=== PATIENT | male | born 1975 | race Caucasian/White ===

== ENCOUNTER 2019-09-26 10:24 | Emergency (ER) | payer BC, OTHER ==
[2019-09-26] MEDS ORDERED: Acetaminophen/HYDROcodone 325-5 MG Tab PO ONE (10:44)
[2019-09-26] MEDS ORDERED: Ondansetron 4 MG Tab.DIS PO ONE (10:44)
--- NOTE | 2019-09-26 10:47 | EDM.PDOC ---
ED HPI GENERAL MEDICAL PROBLEM - General Chief Complaint: Upper Extremity Injury/Pain Stated Complaint: HURT RT SHOULDER Time Seen by Provider: 09/26/19 10:26 Source of Information: Reports: Patient History Limitations: Reports: No Limitations - History of Present Illness INITIAL COMMENTS - FREE TEXT/NARRATIVE: HISTORY AND PHYSICAL: History of present illness: Patient is a 44-year-old male who presents to the emergency room with complaints of right shoulder pain. He states he was walking down the stairs when he slipped and fell into the wall. He was trying to catch himself on the railing and felt sharp pain into the was trying to catch himself on the railing and felt sharp pain into the right shoulder. He denies actually falling to the ground or hitting his head. He denies any other extremity involvement. Does have a previous history of some rotator cuff injury 2. Denies any numbness or tingling of the affected extremity. Limited range of motion due to pain. Review of systems: As per history of present illness and below otherwise all systems reviewed and negative. Past medical history: As per history of present illness and as reviewed below otherwise noncontributory. Surgical history: As per history of present illness and as reviewed below otherwise noncontributory. Social history: See social history for further information Family history: As per history of present illness and as reviewed below otherwise noncontributory. Physical exam: General: Well-developed and well-nourished 44-year-old male. Alert and oriented. Nontoxic appearing and in no acute distress. HEENT: Atraumatic, normocephalic, pupils equal and reactive bilaterally, negative for conjunctival pallor or scleral icterus, mucous membranes moist, TMs normal bilaterally, throat clear, neck supple, nontender, trachea midline. No drooling or trismus noted. No meningeal signs. No hot potato voice noted. Lungs: Clear to auscultation, breath sounds equal bilaterally, chest nontender. Heart: S1S2, regular rate and rhythm without overt murmur Abdomen: Soft, nondistended, nontender. Negative for masses or hepatosplenomegaly. Negative for costovertebral tenderness. Pelvis: Stable nontender. Skin: Intact, warm, dry. No lesions or rashes noted. Extremities: Limited ROM of right shoulder. Pain with palpation of the right shoulder girdle, no pain above or below that site. Strong radial pulse. He otherwise moves all other extremities per self without difficulty or deficits, negative for cords or calf pain. Neurovascular unremarkable. Neuro: Awake, alert, oriented. Cranial nerves II through XII unremarkable. Cerebellum unremarkable. Motor and sensory unremarkable throughout. Exam nonfocal. Notes: X-ray shows no acute findings. Patient is aware of the limitations of imaging through the ER; we discussed the likely need for further imagining like MRI. Encouraged him to follow up with orthopedic provider. Sling was applied with education. Supportive care measures were reviewed and discussed. Voices understanding and is agreeable to plan of care. Denies any further questions or concerns at this time. Diagnostics: Shoulder Therapeutics: Dudley, Zofran Prescription: Dudley (#20), Zofran Impression: Right shoulder injury Plan: 1. Rest, ice, elevate the affected extremity. Please wear the splint as directed. 2. Tylenol and/or Ibuprofen as needed for pain management. 3. Follow up with the Orthopedic provider as we discussed. Return to the ED as needed and as discussed. Definitive disposition and diagnosis as appropriate pending reevaluation and review of above. Right Upper Arm Pain Score (Numeric/FACES): 11 - Related Data Allergies Allergy/AdvReac Type Severity Reaction Status Date / Time No Known Allergies Allergy Verified 09/26/19 10:40 Home Meds: Home Meds Acetaminophen/HYDROcodone [Dudley 325-5 MG] 1 dose PO Q4H #20 tablet 09/26/19 [Rx ] Losartan [Cozaar] 100 mg PO DAILY 09/26/19 [History] Ondansetron [Zofran ODT] 4 mg PO Q6H PRN #8 tab.dis 09/26/19 [Rx] Past Medical History Cardiovascular History: Reports: Hypertension - Infectious Disease History Infectious Disease History: Reports: Chicken Pox Social & Family History - Family History Family Medical History: Noncontributory - Tobacco Use Smoking Status *Q: Never Smoker - Recreational Drug Use Recreational Drug Use: No Review of Systems - Review of Systems Review Of Systems: Comprehensive ROS is negative, except as noted in HPI. ED EXAM, GENERAL - Physical Exam Exam: See Below (See dictation) Course - Vital Signs Last Recorded V/S: Last Vital Signs Temp 98.0 F 09/26/19 10:33 Pulse 93 09/26/19 10:33 Resp 18 09/26/19 10:33 BP 140/96 H 09/26/19 10:33 Pulse Ox 96 09/26/19 10:33 - Orders/Labs/Meds Orders: Active Orders 24 hr Category Date Time Status DME for Discharge [COMM] Stat Oth 09/26/19 12:06 Ordered Meds: Medications Discontinued Medications Generic Name Dose Route Start Last Admin Trade Name Freq PRN Reason Stop Dose Admin Hydrocodone Bitart/Acetaminophen 1 tab 09/26/19 10:44 09/26/19 11:06 Dudley 325-5 Mg PO 09/26/19 10:45 1 tab ONETIME ONE Administration Ondansetron HCl 4 mg 09/26/19 10:44 09/26/19 11:06 Zofran Odt PO 09/26/19 10:45 4 mg ONETIME ONE Administration Departure - Departure Time of Disposition: 12:11 Disposition: Home, Self-Care 01 Clinical Impression: Right shoulder injury Qualifiers: Encounter type: initial encounter Qualified Code(s): S49.91XA - Unspecified injury of right shoulder and upper arm, initial encounter - Discharge Information Prescriptions: Acetaminophen/HYDROcodone [Dudley 325-5 MG] 1 dose PO Q4H #20 tablet Ondansetron [Zofran ODT] 4 mg PO Q6H PRN #8 tab.dis PRN Reason: Nausea Instructions: Shoulder Sprain Referrals: Rogelio Jay MD [Primary Care Provider] - Forms: ED Department Discharge Additional Instructions: The following information is given to patients seen in the emergency department who are being discharged to home. This information is to outline your options for follow-up care. We provide all patients seen in our emergency department with a follow-up referral. The need for follow-up, as well as the timing and circumstances, are variable depending upon the specifics of your emergency department visit. If you don't have a primary care physician on staff, we will provide you with a referral. We always advise you to contact your personal physician following an emergency department visit to inform them of the circumstance of the visit and for follow-up with them and/or the need for any referrals to a consulting specialist. The emergency department will also refer you to a specialist when appropriate. This referral assures that you have the opportunity for follow-up care with a specialist. All of these measure are taken in an effort to provide you with optimal care, which includes your follow-up. Under all circumstances we always encourage you to contact your private physician who remains a resource for coordinating your care. When calling for follow-up care, please make the office aware that this follow-up is from your recent emergency room visit. If for any reason you are refused follow-up, please contact the [facility] Emergency Department at and asked to speak to the emergency department charge nurse. [facility] [address] [place] [address] [id number] [address] [address] 1. Rest, ice, elevate the affected extremity. Please wear the splint as directed. 2. Tylenol and/or Ibuprofen as needed for pain management. Dudley for moderate to severe pain, take as needed. 3. Follow up with the Orthopedic provider as we discussed. You will likely need further imagining like MRI. 4. Return to the ED as needed and as discussed. Sepsis Event Note - Evaluation Sepsis Screening Result: No Definite Risk - Focused Exam Vital Signs: Vital Signs Temp Pulse Resp BP Pulse Ox 09/26/19 10:33 98.0 F 93 18 140/96 H 96 Date Exam was Performed: 09/26/19 Time Exam was Performed: 12:07 - My Orders Last 24 Hours: My Active Orders 09/26/19 12:06 DME for Discharge [COMM] Stat - Assessment/Plan Last 24 Hours: My Active Orders 09/26/19 12:06 DME for Discharge [COMM] Stat
--- NOTE | 2019-09-26 12:02 | CR ---
Right shoulder: 3 views of the right shoulder were obtained. Comparison: No previous shoulder study. Acromioclavicular joint shows no abnormal inferior spurring. Glenohumeral joint is within normal limits. No fracture or other bony abnormality is identified. No abnormal soft tissue calcifications are seen. Impression: 1. Nothing acute is seen on right shoulder study. Diagnostic code #1 This report was dictated in [place] Standard Time
== END 2019-09-26 12:33 | disposition home or self-care (01) ==
LOC: MW.ED 10:24
DX: S49.91XA Unspecified injury of right shoulder and upper arm, initial encounter (principal); I10 Essential (primary) hypertension; Z79.899 Other long term (current) drug therapy; W10.9XXA Fall (on) (from) unspecified stairs and steps, initial encounter
CPT/HCPCS: 73030; 99283; A9270